=== PATIENT | female | born 2000 | race Caucasian/White ===

== ENCOUNTER 2024-11-21 04:41 | Inpatient (IN) | payer MEDICAID ==
[2024-11-22] MEDS ORDERED: Methylergonovine 0.2 MG/1 ML Amp IM PRN (00:22)
[2024-11-22] MEDS ORDERED: Sodium Chloride 0.9% 2.5 ML Syringe FLUSH PRN (00:22)
[2024-11-22] MEDS ORDERED: Terbutaline 1 MG/ML SDV SUBCUT PRN (00:22)
[2024-11-22] MEDS ORDERED: Ondansetron 4 MG/2 ML SDV IVPUSH PRN (00:22)
[2024-11-22] MEDS ORDERED: Water For Irrigation,Sterile 1,000 ML Container IRR PRN (00:22)
[2024-11-22] MEDS ORDERED: Nalbuphine 10 MG/1 ML Vial IVPUSH PRN (00:22)
[2024-11-22] MEDS ORDERED: Tranexamic Acid in NACL,ISO-OS 1,000 MG in Premix Bag 1 BAG IV PRN (00:22)
[2024-11-22] MEDS ORDERED: Sodium Chloride 0.9% 10 ML Syringe FLUSH PRN (00:22)
[2024-11-22] MEDS ORDERED: Misoprostol 200 MCG Tab PO PRN (00:22)
[2024-11-22] MEDS ORDERED: Sodium Chloride 0.9% 20 ML SDV IV PRN (00:22)
[2024-11-22] MEDS ORDERED: Misoprostol 100 MCG Tab RECTAL PRN (00:22)
[2024-11-22] MEDS ORDERED: Lidocaine 1% 50 ML MDV INJECT PRN (00:22)
[2024-11-22] MEDS ORDERED: Carboprost Tromethamine 250 MCG/1 mL Vial IM PRN (00:22)
[2024-11-22] MEDS ORDERED: Oxytocin/0.9 % Sodium Chloride 30 UNIT/500 ML BAG IV SCH (00:30)
[2024-11-22 01:34] LABS: HEMATOCRIT 36.1 % (37.0-47.0); HEMOGLOBIN 12.9 g/dL (12.0-16.0); MEAN CORPUSCULAR HEMOGLOBIN 31.9 pg (28.0-32.0); MEAN CORPUSCULAR HGB CONC 35.7 g/dL (32.0-36.0); MEAN CORPUSCULAR VOLUME 89.1 fL (83.0-99.0); MEAN PLATELET VOLUME 9.6 fL (9.4-12.3); PLATELET COUNT,PLT 256 K/uL (150-400); RED BLOOD CELL COUNT 4.05 M/uL (4.10-5.30); WHITE BLOOD CELL COUNT,WBC 9.81 K/uL (3.9-11.3)
[2024-11-22] MEDS: Misoprostol 25 MCG (1/4 of 100 MCG) Tab VAG PRN ×2 (01:37→05:44)
[2024-11-22] MEDS: Misoprostol 25 MCG (1/4 of 100 MCG) Tab PO PRN ×2 (01:37→05:45)
[2024-11-22] MEDS ORDERED: ePHEDrine 50 MG/ML SDV IVPUSH PRN (07:42)
[2024-11-22] MEDS ORDERED: Phenylephrine HCl In 0.9% NaCl 1 MG/10 ML Syringe IVPUSH PRN (07:42)
[2024-11-22] MEDS ORDERED: dexmedeTOMIDine HCl 200 MCG/2 ML SDV EPIDUR SCH (07:45)
[2024-11-22] MEDS: Lactated Ringers 1,000 ML IV SCH (10:28)
[2024-11-22] MEDS: Oxytocin/0.9 % Sodium Chloride 30 UNIT/500 ML BAG IV SCH (10:29)
[2024-11-22] MEDS: Butorphanol 2 MG/ML SDV IVPUSH PRN (11:00)
[2024-11-22] MEDS: Ropivacaine HCl/PF 400 MG in Premix Bag 1 BAG EPIDUR SCH (22:53)
[2024-11-23] MEDS ORDERED: Docusate Sodium 100 MG Cap PO PRN (05:26)
[2024-11-23 05:36] LABS: PH,UMBILICAL ARTERIAL 7.141 (7.18-7.38); PH,UMBILICAL VENOUS 7.193 (7.25-7.45)
[2024-11-23] MEDS: Witch Hazel Medicated Pads 40/Jar TOP PRN (09:20)
[2024-11-23] MEDS: Lanolin 100% Cream 7 GM Tube TOP PRN (09:21)
[2024-11-23] MEDS: Benzocaine/Menthol 20%-0.5% Spray 78 GM Cannister TOP PRN (09:21)
[2024-11-23] MEDS: Ibuprofen 800 MG Tab PO PRN (09:25)
[2024-11-23] MEDS: Acetaminophen 500 MG Tab PO PRN (21:12)
[2024-11-24 05:59] LABS: HEMATOCRIT 34.6 % (37.0-47.0); HEMOGLOBIN 12.1 g/dL (12.0-16.0)
== END 2024-11-24 21:07 | disposition home or self-care (01) | DRG 807 ==
LOC: MW.OB 04:41 → OBSVTOIN 11-23 04:41 → MW.OB 11-23 11:42
PROVIDERS: ADMIT Obstetrics & Gynecology Obstetrics; ATTEND Obstetrics & Gynecology Obstetrics
PROC: 10E0XZZ Delivery of Products of Conception, External Approach (ICD-10-PCS; principal; 2024-11-23)
PROC: 3E0R3BZ Introduction of Anesthetic Agent into Spinal Canal, Percutaneous Approach (ICD-10-PCS; 2024-11-23)
PROC: 00HU33Z Insertion of Infusion Device into Spinal Canal, Percutaneous Approach (ICD-10-PCS; 2024-11-23)
DX: O14.94 Unspecified pre-eclampsia, complicating childbirth (principal); Z37.0 Single live birth; Z3A.38 38 weeks gestation of pregnancy
CPT/HCPCS: 01967; 36415; 51702; 59025; 59409; 82803; 85014; 85018; 85027; 86592; 86850; 86900; 86901; A9270-GY; J0595; J2590; J2795; J7120